=== PATIENT | female | born 1995 | race Caucasian/White ===

== ENCOUNTER 2025-09-06 14:25 | Emergency (ER) | payer SELFPAY ==
[2025-09-06 14:31] VITALS: BP 110/65; PULSE 76; RESP 18; RESP 22; TEMP 36.5; O2SAT 98; O2SAT 99; BMI 20.5
--- NOTE | 2025-09-06 14:32 | EDNOTE_ITS ---
ED General RME/HPI General Chief complaint: Altered Mental Status Stated complaint: AMS Time Seen by Provider: 09/06/25 14:30 Arrival date/time: 09/06/25 14:25 CC: Patient presents to the emergency room with confusion. Patient was picked up by PD and transferred to EMS who brought the patient to us. The patient states she took some drugs that she had found but does not know what it is the patient is mildly confused with a distant stare. She is answering all questions with honesty. When stated where she is she says I do not know . Patient is not sure when her last menses was. Patient states she has no physical pain right now. Denies any regular medication. Patient is now awake alert oriented x 1. Related Data Home Medications ?Medication ?Instructions ?Recorded ?Confirmed No Known Home Medications 06/11/2405/27 Previous Rx's ?Medication ?Instructions ?Recorded ciprofloxacin HCl 500 mg tablet 500 mg PO BID #14 tabs 04/12/22 (Cipro) ciprofloxacin HCl 500 mg tablet 500 mg PO BID #14 tabs 08/09/23 (Cipro) Allergies Allergy/AdvReac Type Severity Reaction Status Date / Time No Known Allergies Allergy Verified 09/06/25 14:35 Review of Systems Review of Systems Narrative Review of Systems: GEN: No fever, no chills, no weight loss EYES: No discharge, no visual changes, no pain HEENT: No ear pain, no congestion, no sore throat PULM: No shortness of breath, no cough, no congestion CV: No chest pain, no dyspnea on exertion, no palpitations GI: No nausea, no vomiting, no diarrhea, no pain, no constipation : No frequency, no urgency, no dysuria MUSC/SKEL: No joint pain, no back pain SKIN: No rash PSYCH: No hallucinations, no depression HEME/LYMPH: No easy bleeding or bruising tendencies NEURO: No weakness, no headache Past Medical History Past Medical History CARDIAC: Negative Cardiac Disorders or Congestive Heart Failure RESPIRATORY: Negative Chronic Obstructive Pulmonary Disease (COPD) or Asthma GENITOURINARY: Positive Kidney Stones; Negative Renal Disease ENDOCRINE: Negative Diabetes Mellitus Type 1 or Diabetes Mellitus Type 2 HEMATOLOGIC: Negative Sickle Cell Disease OTHER HISTORY: Negative Blood Transfusions Family History FAMILY HISTORY: Negative Family Neurologic Problems Social History SMOKING STATUS: Never smoker SUBSTANCE USE: marijuana and methamphetamine ED Exam Narrative Physical exam: [General: Appears not in any acute distress Head normocephalic HEENT: Within acceptable limits Neck is supple nontender Chest equal chest rise nontender to palpation Respiratory: Clear to auscultation no wheezes crackles or rubs CV: Rate rhythm is regular no murmurs rubs or clicks Abdomen is soft nontender no masses positive bowel sounds all 4 quadrants Back: No CVA tenderness no spinous process tenderness from cervical spine thoracic and lumbar spine Skin: Intact no petechiae rash induration ulceration or crepitus Extremities: Moving all extremities against resistance cap refill less than 2 seconds neurosensory intact Neuro: Awake alert oriented x1, self, Glascow coma 15 no focal deficits] Course Course Course Narrative: Reassessment of the page at 2223, the patient is up and walking. She is conversing and eating food. She has polypharmacy in her urine. Patient can be discharged home. Quality Measures none Orders Category Date Time Status B-Type Natriuretic Peptide Stat Lab 09/06/25 15:25 Completed CBC Stat Lab 09/06/25 15:25 Completed Comprehensive Metabolic Panel Stat Lab 09/06/25 15:25 Completed Drug Screen,Urine Stat Lab 09/06/25 16:54 Completed LDH (Lactate Dehydrogenase) Stat Lab 09/06/25 15:25 Completed Magnesium Stat Lab 09/06/25 15:25 Completed Partial Thromboplastin Time Stat Lab 09/06/25 15:25 Completed Prothrombin Time with INR Stat Lab 09/06/25 15:25 Completed Troponin I Stat Lab 09/06/25 15:25 Completed Urinalysis, C/S if Indicated Stat Lab 09/06/25 16:54 Completed Urine Culture Stat Lab 09/06/25 16:54 Received Vital Signs Vital signs: Vital Signs Temperature 97.7 F 09/06/25 14:31 Respiratory Rate 22 H 09/06/25 14:31 Blood Pressure 110/65 09/06/25 14:31 Pulse Oximetry (%) 98 09/06/25 14:31 Oxygen Delivery Method Room Air 09/06/25 14:31 Discharge Plan Plan Patient Disposition: HOME (Self Care) Patient condition on transfer: Stable Prescriptions/Referrals Prescriptions/Med Rec: No Action ciprofloxacin HCl [Cipro] 500 mg tablet 500 mg PO BID Qty: 14 0RF ciprofloxacin HCl [Cipro] 500 mg tablet 500 mg PO BID Qty: 14 0RF No Known Home Medications Referrals: No Primary/Family,Physician [Primary Care Provider] - In 1 week Problem List Clinical Impression: Polysubstance abuse, Methamphetamine abuse Patient/Caregiver Discharge Instructions Other Activity Instructions:: Stop using drugs Education Materials: ED Drug Abuse Print Language: Swedish Stand Alone Forms: Shantel Award Info., Work/School Release, Patient Portal Info Letter PA/JULISSA Supervising Physician NANDO/JULISSA Supervising Physician: Dio Sesay ENP MDM Clinical Information Provided by: patient Medical Records reviewed [facility] Meds/Rx considered, not ordered None Labs/Rad/Tests considered, not ordered None Chronic Illness/Social Conditions which may negatively complicate care or outcome(s)-explain: None or not applicable Explain: Review the medical record showed multiple visits to the emergency room room for wide variety of complaints including methamphetamines abuse. EKG EKG not done Labs Labs: interpreted by ct Lab(s) Interpretation(s): CBC shows no acute leukocytosis anemia thrombocytopenia Coags within acceptable limits CMP shows no significant electrolyte imbalances renal impairment transaminitis or T. bili elevation. Troponin is undetectable BNP is within acceptable limits Urine shows no acute urinary tract infection. UDS is positive for fentanyl methamphetamines and THC.
[2025-09-06 15:37] LABS: Basophils # (Auto) 0.1 Thou/mm3 (0.0-0.2); Basophils % (Auto) 1 % (0-2.5); Eosinophils # (Auto) 0.2 Thou/mm3 (0.0-0.5); Eosinophils % (Auto) 2 % (0-10); Hematocrit 36.3 % (36.0-46.0); Hemoglobin 11.8 g/dL (12.0-16.0); Immature Granulocytes Auto 0.01 Thou/mm3 (0.00-0.00); Lymphocytes # (Auto) 2.3 Thou/mm3 (1.0-4.8); Lymphocytes % (Auto) 23 % (10-50); Mean Corpuscular HGB Conc 32.5 g/dl (31.0-37.0); Mean Corpuscular Hemoglobin 27.1 pg (25.0-35.0); Mean Corpuscular Volume 83 fL (80-100); Monocytes # (Auto) 0.7 Thou/mm3 (0.0-0.8); Monocytes % (Auto) 7 % (0-12); Neutrophils # (Auto) 6.8 Thou/mm3 (1.8-7.7); Neutrophils % (Auto) 67 % (37-80); Nucleated Red Blood Cell # 0.00 Thou/mm3 (0.00-0.00); Nucleated Red Blood Cell % 0 /100 WBC (0); Platelet Count 392 Thou/mm3 (140-440); RDW Standard Deviation 42.1 fL (36.4-46.3); Red Blood Count 4.35 Miln/mm3 (4.00-5.20); White Blood Count 10.1 Thou/mm3 (3.6-11.0)
[2025-09-06 15:56] LABS: B-Type Natriuretic Peptide 25 pg/mL (0-100)
[2025-09-06 15:57] LABS: Alanine Aminotransferase 30 U/L (10-49); Albumin, Serum 5.2 gm/dL (3.5-5.0); Albumin/Globulin Ratio 1.7 (1.2-2.2); Alkaline Phosphatase 75 U/L (46-116); Anion Gap 11 (7-16); Aspartate Amino Transferase 42 U/L (0-34); BUN/Creatinine Ratio 19 Ratio (12-20); Bilirubin,Total 0.4 mg/dL (0.3-1.2); Blood Urea Nitrogen 15 mg/dL (9-23); Calcium 9.8 mg/dL (8.3-10.6); Calcium (Corrected) 9.8 mg/dL (8.5-10.1); Carbon Dioxide 23.8 mMol/L (20.0-31.0); Chloride 107 mMol/L (98-107); Creatinine (Component) 0.8 mg/dL (0.6-1.3); Estimated Creatinine Clearance 89.2 mL/min (>60); Globulin 3.1 gm/dL (2.3-3.5); Glucose 92 mg/dL (74-106); INR 1.0 (0.9-1.3); LDH (Lactate Dehydrogenase) 278 U/L (120-246); Magnesium 1.8 mg/dL (1.6-2.6); Osmolality,Calculated 283 (275-295); Partial Thromboplastin Time 27.3 Seconds (22.0-36.0); Potassium 3.5 mMol/L (3.4-5.1); Prothrombin Time 10.5 Seconds (9.0-12.2); Sodium 142 mMol/L (136-145); Total Protein 8.3 gm/dL (5.7-8.2); Troponin I < 0.002 ng/mL (0.0-0.045); eGFR > 60 See Note
[2025-09-06 15:58] VITALS: BP 119/78; PULSE 78; RESP 18; TEMP 36.8; O2SAT 100
[2025-09-06 17:15] LABS: Collection Type, Urine Clean Catch
[2025-09-06 17:37] LABS: Amphetamine/Methamp Scrn,U Positive (Negative); Bacteria,Urine Rare; Barbiturate Screen,Urine Negative (Negative); Benzodiazepines Screen,Urine Negative (Negative); Benzoylecgonine Screen, Ur Negative (Negative); Bilirubin,Urine Negative (Negative); Blood,Urine Negative (Negative); Clarity,Urine Clear (Clear/Hazy); Color,Urine Yellow (Lt Yel-Yel); Fentanyl Screen,Urine Positive (Negative); Glucose, Urine Negative (Negative); Ketones,Urine 2+ (Negative); Leukocyte Esterase,Urine Negative (Negative); Nitrite,Urine Positive (Negative); Opiate Screen,Urine Negative (Negative); PH,Urine 5.5 (5.0-7.0); Protein,Urine Trace (Neg - Trace); RBC,Urine 1 /hpf (0-3); Specific Gravity,Urine 1.032 (1.001-1.035); Squamous Epithelial Cell,Urine 3 /hpf (0-5); THC Screen,Urine Positive (Negative); Urobilinogen,Urine Negative mg/dL (0.0-1.0); WBC,Urine 3 /hpf (0-5)
[2025-09-06 17:42] LABS: Culture Indicated,Urine Yes
[2025-09-06 17:49] VITALS: BP 118/76; PULSE 86; RESP 23; TEMP 36.5; O2SAT 99
[2025-09-06 19:59] VITALS: BP 106/70; PULSE 92; RESP 17; O2SAT 98
[2025-09-06 22:27] VITALS: BP 128/82; PULSE 85; RESP 16; TEMP 36.8; O2SAT 98
== END 2025-09-06 23:11 | disposition home or self-care (01) ==
PROVIDERS: Registered Nurse General Practice; Emergency Provider Family Medicine
DX: F15.10 Other stimulant abuse, uncomplicated (principal)
CPT/HCPCS: 36415; 80053; 80307; 81001; 83615; 83735; 83880; 84484; 85025; 85610; 85730; 87077; 87086; 87186; 99282